=== PATIENT | male | born 1990 | race Caucasian/White ===

== ENCOUNTER 2017-10-19 21:14 | Emergency (ER) | payer SELFPAY ==
[~2017-10-19] VITALS: Ht 165.1 cm; Wt 48.0 kg
[2017-10-20] MEDS ORDERED: IBUPROFEN 600MG TABLET PO ONE
[2017-10-20 01:03] VITALS: BP 121/81
== END 2017-10-20 01:04 | disposition home or self-care (01) ==
LOC: ER 21:14
DX: S20.211A Contusion of right front wall of thorax, initial encounter (principal); X58.XXXA Exposure to other specified factors, initial encounter; Y93.89 Activity, other specified; Y92.89 Other specified places as the place of occurrence of the external cause; Y99.8 Other external cause status
CPT/HCPCS: 71101; 99284